=== PATIENT | male | born 1985 | race African-American/Black ===

== ENCOUNTER 2017-05-02 16:06 | Emergency (ER) | payer MEDICAID ==
[~2017-05-02] VITALS: Ht 175.3 cm; Wt 85.0 kg
[2017-05-02 16:09] VITALS: BP 129/69
== END 2017-05-02 21:14 | disposition left against medical advice (07) ==
LOC: ER 16:30
DX: R53.1 Weakness (principal); Z53.21 Procedure and treatment not carried out due to patient leaving prior to being seen by health care provider